=== PATIENT | female | born 1975 | race Two or more races ===

== ENCOUNTER → 2022-09-23 | Outpatient (CLI) | payer MEDICAID | END | disposition home or self-care (01) | LOC: Rad HDHVI 08:25 | PROVIDERS: ATTEND Internal Medicine Cardiovascular Disease | DX: R06.02 Shortness of breath (principal) | CPT/HCPCS: 93306 ==

== ENCOUNTER → 2022-10-08 | Outpatient (CLI) | payer MEDICAID ==
[~2022-10-08] VITALS: Ht 160 cm; Wt 72.6 kg
[~2022-10-08] MED LIST: ADENOSINE 61 MG in GIVE UN-DILUTED 0 ML IV ONE; ADENOSINE 90 MG/30 ML INJ IV ONE
== END | disposition home or self-care (01) ==
LOC: Rad HDHVI 09:24
PROVIDERS: ATTEND Internal Medicine Cardiovascular Disease
DX: I11.0 Hypertensive heart disease with heart failure (principal); I50.43 Acute on chronic combined systolic (congestive) and diastolic (congestive) heart failure; I82.409 Acute embolism and thrombosis of unspecified deep veins of unspecified lower extremity; E78.5 Hyperlipidemia, unspecified; E11.9 Type 2 diabetes mellitus without complications; R07.89 Other chest pain; R06.02 Shortness of breath; R60.9 Edema, unspecified; Z82.49 Family history of ischemic heart disease and other diseases of the circulatory system
CPT/HCPCS: 78452; 93005; 96374; 96375; A9500; J0153

== ENCOUNTER → 2022-10-13 | Outpatient (CLI) | payer MEDICAID | END | disposition home or self-care (01) | LOC: Rad HDHVI 08:22 | PROVIDERS: ATTEND Internal Medicine Cardiovascular Disease | DX: R80.9 Proteinuria, unspecified (principal) | CPT/HCPCS: 93970 ==

== ENCOUNTER → 2022-11-24 | Outpatient (CLI) | payer MEDICAID ==
[~2022-11-24] MED LIST changes: -ADENOSINE 61 MG in GIVE UN-DILUTED 0 ML IV ONE; -ADENOSINE 90 MG/30 ML INJ IV ONE; +FURO20TA3 PO; +INSU1INJ19 SC; +METF750T54 PO; +METH-1182 PO; +ROSU10TA16 PO
[2022-11-24 08:45] VITALS: BP 114/64; PULSE 72; RESP 16; O2SAT 96
[2022-11-24 09:03] VITALS: BP 123/73; PULSE 71; RESP 16; O2SAT 96
== END | disposition home or self-care (01) ==
LOC: Rad HDHVI 08:30
PROVIDERS: ATTEND Internal Medicine Cardiovascular Disease
DX: Z01.818 Encounter for other preprocedural examination (principal); I11.0 Hypertensive heart disease with heart failure; I50.23 Acute on chronic systolic (congestive) heart failure; I70.0 Atherosclerosis of aorta
CPT/HCPCS: 71046; 93005; G0463

== ENCOUNTER 2022-11-27 07:00 | Day surgery (SDC) | payer MEDICAID ==
[2022-11-24 10:49] LABS: Basophils # (auto) 0 10 ^3/uL (0-0.2); Basophils % (auto) 0.6 % (0.0-2.0); Eosinophils # (auto) 0.3 10 ^3/uL (0-0.8); Eosinophils % (auto) 3.7 % (0.0-7.0); Hematocrit 40.7 % (36.0-46.0); Hemoglobin 13.1 g/dL (12.2-16.2); Lymphocytes # (auto) 2.2 10 ^3/uL (0.4-5.4); Lymphocytes % (auto) 26.6 % (10.0-50.0); Mean Corpuscular Hemoglobin 27.6 pg (28.0-32.0); Mean Corpuscular Hgb Conc. 32.1 g/dL (32.0-36.0); Monocytes # (auto) 0.6 10 ^3/uL (0-1.3); Monocytes % (auto) 6.6 % (0.0-12.0); Neutrophils # (auto) 5.3 10 ^3/uL (1.6-8.6); Neutrophils % (auto) 62.5 % (37.0-80.0); Nucleated Red Blood Cells % 0.1 %; Red Blood Cells 4.73 10^6/uL (4.0-5.20); Red Cell Distribution Width 14.6 % (11.8-14.3); White Blood Cell 8.4 10^3/uL (4.4-10.8)
[2022-11-24 11:01] LABS: Partial Thromboplastin Time 27.6 SEC (24.5-34.5); Prothrombin Time 10.5 sec (9.3-11.8)
[2022-11-24 11:54] LABS: Alanine Aminotransferase 19 U/L (7-40); Albumin 4.5 g/dL (3.2-4.8); Alkaline Phosphatase 119 U/L (46-116); Anion Gap 7.3 (5-15); Aspartate Aminotransferase 15 U/L (13-40); BUN/Creatinine Ratio 26.4 (10.0-20.0); Blood Urea Nitrogen 14 mg/dL (9-23); Calcium 9.4 mg/dL (8.5-10.1); Carbon Dioxide 24.7 mmol/L (20-30); Chloride 110 mmol/L (98-107); Glucose 89 mg/dL (74-106); Potassium 4.3 mmol/L (3.5-5.1); Sodium 142 mmol/L (136-145)
[2022-11-24 11:55] LABS: Bilirubin, Total 0.3 mg/dL (0.2-1.0); Total Protein 7.6 g/dL (5.7-8.2)
[~2022-11-27] VITALS: Ht 160 cm; Wt 74.4 kg
[2022-11-27] VITALS (7 sets, daily range): BP systolic 96–126; BP diastolic 61–77; PULSE 54–62; RESP 12–25; O2SAT 92–97
[~2022-11-27 07:00] MED LIST changes: -METH-1182 PO
[2022-11-27] MEDS ORDERED: LIDOCAINE 2%HCL (LOCAL ANESTH.) INJ 20ML MDV ONE ×2 (08:53→09:20)
[2022-11-27] MEDS ORDERED: IOHEXOL 350 MG/ML 100ML IJ ONE (08:53)
[2022-11-27] MEDS ORDERED: fentaNYL CITRATE 100 MCG/2 ML VL ONE (09:09)
[2022-11-27] MEDS ORDERED: ANGIOMAX 250 MG VIAL IV ONE (09:09)
[2022-11-27] MEDS ORDERED: SODIUM CHL 0.9% 0 ML ONE (09:10)
[2022-11-27] MEDS ORDERED: MIDAZOLAM HCL 2MG/2ML 2ml VIAL (1mg/ml) ONE (09:10)
== END 2022-11-27 11:45 | disposition home or self-care (01) ==
LOC: CATH 07:00
PROVIDERS: ATTEND Internal Medicine Cardiovascular Disease
DX: R06.02 Shortness of breath (principal); R07.89 Other chest pain; E11.40 Type 2 diabetes mellitus with diabetic neuropathy, unspecified; E11.21 Type 2 diabetes mellitus with diabetic nephropathy; E78.5 Hyperlipidemia, unspecified; E66.01 Morbid (severe) obesity due to excess calories; Z68.41 Body mass index [BMI] 40.0-44.9, adult
CPT/HCPCS: 36415; 80053; 85025; 85610; 85730; 93460; C1894; J2250; J3010; Q9967; 99152

== ENCOUNTER → 2023-10-19 | Outpatient (CLI) | payer MEDICAID | END | disposition home or self-care (01) | LOC: XYW 09:40 | PROVIDERS: ATTEND Student in an Organized Health Care Education/Training Program | DX: I51.89 Other ill-defined heart diseases (principal); R07.9 Chest pain, unspecified | CPT/HCPCS: 93306 ==

== ENCOUNTER → 2023-12-07 | Outpatient (CLI) | payer MEDICAID ==
[~2023-12-07] VITALS: Ht 154.9 cm; Wt 69.9 kg
[2023-12-07] MEDS: ADENOSINE 59 MG in GIVE UN-DILUTED 0 ML IV STA (11:30)
== END | disposition home or self-care (01) ==
LOC: XYW 10:14
PROVIDERS: ATTEND Student in an Organized Health Care Education/Training Program
DX: R00.1 Bradycardia, unspecified (principal); R07.9 Chest pain, unspecified; I50.32 Chronic diastolic (congestive) heart failure; E11.9 Type 2 diabetes mellitus without complications; E78.5 Hyperlipidemia, unspecified
CPT/HCPCS: 78452; 93017; A9500; J0153

== ENCOUNTER → 2024-07-11 | Outpatient (CLI) | payer MEDICAID ==
[~2024-07-11] VITALS: Ht 149.9 cm; Wt 72.6 kg
[2024-07-11 12:24] VITALS: BP 131/80
[2024-07-11] MEDS: DOBUTamine 1000MCG/ML 100 ML IV ONE (12:24)
[2024-07-11] MEDS: OPTISON 3ml Vial for INJ IV ONE ×2 (12:24)
[2024-07-11] MEDS: ATROPINE SULF 1 MG/10ml SYR IV ONE (12:43)
[2024-07-11] MEDS: ATROPINE SULF 0.5 MG/5ML SYR ONE (12:43)
[2024-07-11] MEDS: METOPROLOL TARTRATE 1MG/1ML-5ML VIAL IV ONE ×2 (12:59)
[2024-07-11] MEDS: DOBUTamine 1000MCG/ML 250 ML IV ONE (13:10)
--- NOTE | 2024-07-13 07:50 | DVHSR ---
APPROVED REPORT Exam: Nuclear Stress Test Indication: Chest pain, CARDIAC CLEARANCE Stress Tech: Mary DURANT Ht: 5 ft 2 in Wt: 160 lbs BSA: 1.74 m2 BMI: 29.26 Medical History Medical History: HTN, DLD, PREDIABETIC, HYPOTHYROIDISM, EF 55% Allergies: LATEX GLOVES Stress Test Details Stress Test: Pharmacological stress test performed using dobutamine initiated at 5 mcg/kg/min titrat ed sequentially 10, 20, 30 and 40 mcg/kg/min to target heart rate. Reason for pharmacologic stress test: CHEST PAIN, CARDIAC CLEARANCE. HR Resting HR: 77 bpmMax Heart Rate (APMHR): 169.325319 bpm Max HR Achieved: 137 bpmTarget HR (85% APMHR): 143.723890 bpm % of APMHR: 81.07 Recovery HR: 83 bpm BP Resting BP: 131/80 mmHg Recovery BP: 132/70 mmHg ECG Resting ECG: Sinus Rhythm Clinical Reason for Termination: Completed protocol Nurse Comments Received patient ambulatory, A&O x4, and on RA. Patient connected to rn cardiac rehab and VS are stab le. For details, please refer to cardio-neuro procedural notes. PIV flushes well and patent. DR. Sussy RUEDA PRESENT. SEE EMAR FOR ADDITIONAL MEDICATIONS GIVEN WITH DR. THOMAS'S ORDERS. Stress ECG Conclusion stress echo shows hyper contractility no stress induced ischemia noted ecg portion shows ST depressions 1/2 mm inferolaterally NM EXAM: Myocardial Perfusion REST/STRESS Nuclear Conclusion stress echo shows hyper contractility no stress induced ischemia noted ecg portion shows ST depressions 1/2 mm inferolaterally
== END | disposition home or self-care (01) ==
LOC: XYW 10:49
PROVIDERS: ATTEND Student in an Organized Health Care Education/Training Program
DX: Z01.810 Encounter for preprocedural cardiovascular examination (principal); R07.9 Chest pain, unspecified; R42 Dizziness and giddiness
CPT/HCPCS: 93017; 93350; J0461; J1250; Q9956